=== PATIENT | female | born 1990 | race Two or more races ===

== ENCOUNTER 2024-01-21 10:38 | Outpatient (CLI) | payer OTHER | END 2024-01-21 11:01 | disposition home or self-care (01) | LOC: MAMO-SONO 10:38 | PROVIDERS: ATTEND Obstetrics & Gynecology Gynecology | DX: N63 Unspecified lump in breast (principal); Z12.31 Encounter for screening mammogram for malignant neoplasm of breast; N64.4 Mastodynia; N60.11 Diffuse cystic mastopathy of right breast ==